=== PATIENT | female | born 1990 | race Caucasian/White ===

== ENCOUNTER 2022-05-25 21:07 | Emergency (ER) | payer OTHER ==
[~2022-05-25] VITALS: Ht 162.6 cm; Wt 50.8 kg
[2022-05-25] MEDS ORDERED: KETOROLAC TROMETHAMINE 60 MG/2 ML VIAL IM ONE (22:00)
[2022-05-25] MEDS ORDERED: ONDANSETRON HCL 4 MG ORAL DISINTEGRATING TAB PO ONE (22:00)
[2022-05-25 22:40] LABS: CLARITY,URINE CLEAR (CLEAR); COLOR,URINE YELLOW (YELLOW); KETONES,URINE NEGATIVE (NEGATIVE); LEUKOCYTE ESTERASE ,URINE NEGATIVE (NEGATIVE); NITRITE,URINE NEGATIVE (NEGATIVE); PROTEIN,URINE DIPSTICK NEGATIVE (NEGATIVE); URINE UROBILINOGEN 0.2 mg/dL (0.2 - 1)
[2022-05-25 22:56] LABS: BACTERIA,URINE MODERATE /HPF; EPITHELIAL CELLS,URINE MODERATE /LPF
[2022-05-26] MEDS ORDERED: NAPROSYN500 MG PO (01:35)
[2022-05-26] MEDS ORDERED: ONDANSETRON ODT4 MG PO (01:35)
[2022-05-26] MEDS ORDERED: METHOCARBAMOL500 MG PO (01:35)
== END 2022-05-26 01:40 | disposition home or self-care (01) ==
LOC: ER 21:17
DX: S16.1XXA Strain of muscle, fascia and tendon at neck level, initial encounter (principal); S20.212A Contusion of left front wall of thorax, initial encounter; S70.01XA Contusion of right hip, initial encounter; S43.492A Other sprain of left shoulder joint, initial encounter; S43.491A Other sprain of right shoulder joint, initial encounter; S83.8X2A Sprain of other specified parts of left knee, initial encounter; V43.52XA Car driver injured in collision with other type car in traffic accident, initial encounter; Y92.488 Other paved roadways as the place of occurrence of the external cause
CPT/HCPCS: 70450; 71046; 72125; 73030; 73502; 73562; 73590; 81001; 81025; 99284; J1885; Q0162